=== PATIENT | female | born 1995 | race Caucasian/White ===

== ENCOUNTER 2021-10-21 15:58 | Emergency (ER) | payer MEDICARE, OTHER ==
[~2021-10-21] VITALS: Ht 154.9 cm; Wt 81.8 kg
--- NOTE | 2021-10-21 16:18 | PHYS DOC ---
General Adult EDM: Chief Complaint: FOOT INJURY PAIN HPI: HPI: 26-year-old female with special needs presents with left ankle pain. She is accompanied by her mother. She was at home walking through a doorway when her dogs raced through that area. This caused the patient to fall. She twisted her left foot medially. She started to have swelling soon after. She presents to make sure she does not have a fracture. She denies any other injuries at this time. Review of Systems: Review of Systems: Constitutional: Denies fever or chills Eyes: Denies change in visual acuity HENT: Denies nasal congestion or sore throat Respiratory: Denies cough or shortness of breath Cardiovascular: Denies chest pain or edema GI: Denies abdominal pain, nausea, vomiting, bloody stools or diarrhea : Denies dysuria Musculoskeletal: Left foot pain Integument: Denies rash Neurologic: Denies headache, focal weakness or sensory changes Endocrine: Denies polyuria or polydipsia Lymphatic: Denies swollen glands Psychiatric: Denies depression or anxiety Allergies: Allergies: Allergies Coded Allergies Type Severity Reaction Last Updated Verified Penicillins Allergy Unknown 10/21/21 Yes Physical Exam: PE: Constitutional: Well developed, well nourished, no acute distress, non-toxic appearance. [] HENT: Normocephalic, atraumatic, bilateral external ears normal, oropharynx moist, no oral exudates, nose normal. [] Eyes: PERRLA, EOMI, conjunctiva normal, no discharge. [] Neck: Normal range of motion, no tenderness, supple, no stridor. [] Cardiovascular:Heart rate regular rhythm, no murmur [] Lungs & Thorax: Bilateral breath sounds clear to auscultation [] Abdomen: Bowel sounds normal, soft, no tenderness, no masses, no pulsatile masses. [] Skin: Warm, dry, no erythema, no rash. [] Back: No tenderness, no CVA tenderness. [] Extremities: Left lateral ankle swelling, tenderness. Range of motion deferred due to pain. [] Neurologic: Alert and oriented X 3, normal motor function, normal sensory function, no focal deficits noted. [] Psychologic: Affect normal, judgement normal, mood normal. [] EKG: EKG: [] Radiology/Procedures: Radiology/Procedures: [] Heart Score: C/O Chest Pain: N/A Risk Factors: Risk Factors: DM, Current or recent (<one month) smoker, HTN, HLP, family history of CAD, obesity. Risk Scores: Score 0 - 3: 2.5% MACE over next 6 weeks - Discharge Home Score 4 - 6: 20.3% MACE over next 6 weeks - Admit for Clinical Observation Score 7 - 10: 72.7% MACE over next 6 weeks - Early Invasive Strategies Course & Med Decision Making: Course & Med Decision Making Pertinent Labs and Imaging studies reviewed. (See chart for details) The patient's x-ray is negative for fracture. She appears to have a left ankle sprain. We will place her in a stirrup splint. She is stable for discharge at this time. [] Zain Disclaimer: Zain Disclaimer: This electronic medical record was generated, in whole or in part, using a voice recognition dictation system. Departure Departure: Impression: Primary Impression: Left ankle sprain Disposition: HOME / SELF CARE / HOMELESS Condition: STABLE Referrals: NON,STAFF (PCP) Patient Instructions: Ankle Sprain, Acute, with Phase I [facility] ERNESTINE DIXON DO Oct 21, 2021 16:18
--- NOTE | 2021-10-21 17:22 | RAD ---
Study: XR FOOT_LEFT 3 VIEWS Indication: Fall. Left foot pain. Comparison: None. Findings: No acute fracture is identified. Alignment is within normal limits to include the Lisfranc interval. Maintained joint spaces. Punctate focus of increased density projecting within the plantar soft tissu es between the third and fourth metatarsal shafts. Impression: 1. No displaced fracture. Alignment is within normal limits noting the absence of weightbearing. 2. Punctate nonmetallic focus of increased density projecting within the plantar soft tissues between the third and fourth metatarsal shafts which could represent a retained foreign body of uncertain ac uity (see rankin images). Electronically signed by: ANDRE BARFIELD MD (10/21/2021 5:20 PM) [facility]
[2021-10-21 17:30] VITALS: BP 101/43
== END 2021-10-21 17:30 | disposition home or self-care (01) ==
LOC: ER 15:58
DX: S93.402A Sprain of unspecified ligament of left ankle, initial encounter (principal); X50.1XXA Overexertion from prolonged static or awkward postures, initial encounter; Y93.89 Activity, other specified; Y92.89 Other specified places as the place of occurrence of the external cause; Y99.8 Other external cause status
CPT/HCPCS: 29515; 73630; 99283-25